=== PATIENT | female | born 1955 | race Caucasian/White ===

== ENCOUNTER 2017-06-18 10:33 | Emergency (ER) | payer OTHER ==
[~2017-06-18] VITALS: Ht 167.6 cm; Wt 95.0 kg
[2017-06-18] MEDS ORDERED: HYDROmorphone 1 MG/ML, 1ML IVPush PRN (11:30)
[2017-06-18] MEDS ORDERED: ONDANSETRON 2MG/ML, 2ML IVPush ONE (11:30)
[2017-06-18] MEDS ORDERED: SODIUM CHLORIDE FLUSH 10ML SYR IVF ONE (11:30)
[2017-06-18] MEDS ORDERED: HYDROmorphone 1 MG/ML, 1ML ONE (11:36)
[2017-06-18] MEDS ORDERED: ONDANSETRON 2MG/ML, 2ML ONE (11:36)
[2017-06-18 11:50] LABS: HEMATOCRIT 43.8 % (34.6-47.8); HEMOGLOBIN 14.7 g/dL (11.7-16.4); WHITE BLOOD COUNT 12.7 x10^3/uL (3.4-10)
[2017-06-18 11:57] LABS: BLOOD UREA NITROGEN 8 mg/dL (7-18)
[2017-06-18] MEDS ORDERED: PLEASE ENTER HEIGHT AND WEIGHT MC SCH (12:00)
[2017-06-18] MEDS ORDERED: NEBI5TAB2 PO (12:47)
[2017-06-18] MEDS ORDERED: METF500T4 PO (12:47)
[2017-06-18] MEDS ORDERED: VENL37.57 PO (12:47)
[2017-06-18] MEDS ORDERED: HYDR50TA3 PO (12:47)
[2017-06-18] MEDS ORDERED: LOSA100T6 PO (12:47)
[2017-06-18 14:44] VITALS: BP 166/66
== END 2017-06-18 15:16 | disposition home or self-care (01) ==
LOC: ED 14:20
DX: M54.5 Low back pain (principal); I10 Essential (primary) hypertension
CPT/HCPCS: 36415; 74176; 80048; 81001; 82040; 85025; 96374; 96375; 99285; J1170; J2405

== ENCOUNTER → 2018-04-18 | Outpatient (CLI) | payer OTHER ==
[~2018-04-18] MED LIST: HYDR50TA3 PO; LOSA100T6 PO; METF500T5 PO; NEBI5TAB2 PO; VENL37.57 PO
== END | disposition home or self-care (01) ==
LOC: CVU 15:01
PROVIDERS: ATTEND Family Medicine
DX: I08.1 Rheumatic disorders of both mitral and tricuspid valves (principal); R01.0 Benign and innocent cardiac murmurs
CPT/HCPCS: 93306

== ENCOUNTER → 2018-04-25 | Outpatient (CLI) | payer OTHER | END | disposition home or self-care (01) | LOC: CARD 04-17 15:38 | PROVIDERS: ATTEND Family Medicine | DX: R06.02 Shortness of breath (principal); E11.9 Type 2 diabetes mellitus without complications; I10 Essential (primary) hypertension | CPT/HCPCS: 94060; 94726; 94729 ==

== ENCOUNTER → 2018-09-16 | Outpatient (CLI) | payer OTHER ==
[~2018-09-16] MED LIST changes: -LOSA100T6 PO; +LOSA100T7 PO; +METF500T17 PO; -METF500T5 PO; -NEBI5TAB2 PO; +NEBI5TAB3 PO; +OMNIPAQUE 350 MG/ML, 100ML BOTTLE ONE
== END | disposition home or self-care (01) ==
LOC: CFH 09:09
PROVIDERS: ATTEND Surgery
DX: M48.54XA Collapsed vertebra, not elsewhere classified, thoracic region, initial encounter for fracture (principal); M51.37 Other intervertebral disc degeneration, lumbosacral region; I70.0 Atherosclerosis of aorta; I70.1 Atherosclerosis of renal artery; I10 Essential (primary) hypertension; E66.01 Morbid (severe) obesity due to excess calories; G43.909 Migraine, unspecified, not intractable, without status migrainosus; E11.9 Type 2 diabetes mellitus without complications; F32.9 Major depressive disorder, single episode, unspecified; F98.8 Other specified behavioral and emotional disorders with onset usually occurring in childhood and adolescence
CPT/HCPCS: 74175; Q9967